=== PATIENT | female | born 1975 | race Caucasian/White ===

== ENCOUNTER 2023-03-15 09:49 | Day surgery (SDC) | payer BC, OTHER ==
[2023-03-15] MEDS ORDERED: Sodium Chloride 0.9% 1,000 ML IV SCH (10:30)
[2023-03-15] MEDS ORDERED: Propofol 200 MG/20 ML SDV ONE (11:28)
[2023-03-15] MEDS ORDERED: fentaNYL 100 MCG/2 ML SDV ONE (11:29)
[2023-03-15] MEDS ORDERED: Midazolam 1 MG/ML 2 ML SDV ONE (11:29)
[2023-03-15 13:23] VITALS: BP 139/71; PULSE 58
== END 2023-03-15 13:37 | disposition home or self-care (01) ==
LOC: JP.SDS 09:49
PROVIDERS: ATTEND Surgery
DX: Z12.11 Encounter for screening for malignant neoplasm of colon (principal); K57.30 Diverticulosis of large intestine without perforation or abscess without bleeding; I87.2 Venous insufficiency (chronic) (peripheral); E66.9 Obesity, unspecified; Z86.718 Personal history of other venous thrombosis and embolism; Z88.8 Allergy status to other drugs, medicaments and biological substances; Z68.30 Body mass index [BMI] 30.0-30.9, adult
CPT/HCPCS: 45378; J2250; J2704; J3010; J7030